=== PATIENT | female | born 1970 ===

== ENCOUNTER 2017-11-29 11:39 | Emergency (ER) | payer BC ==
[2017-11-29 11:53] VITALS: BMI 24.3
--- NOTE | 2017-11-29 11:53 | ED PDOC ---
Arrival/HPI - General Chief Complaint: Allergic Reaction Time Seen by Provider: 11/29/17 11:45 Historian: Patient, Family, EMS, Other (Dr. Seay) - History of Present Illness Narrative History of Present Illness (Text): 11/29/17 11:45 A 47 year old female brought into the emergency department by EMS complaining of a reaction s/p skin/allergic reaction testing done prior to arrival at Dr Jc's office. Patient was at Dr. Jc's (ENT specialist) office receiving testing and immediately felt itchiness. Dr. Jc provided patient with Benadryl 50 mg and steroids prior to emergency department arrival. On evaluation, patient is currently whispering but able to respond to questions by nodding head yes or no. Body tremors and eye twitching noted. NO SOB/drooling/ stridor is noted; Daughter denies any changes in mental status prior to appointment at approximately 09:00am with ENT specialist today. Patient denies any fever, chills, sweats, nausea, vomiting, abdominal pain, chest pain, shortness of breath or any other complaints. NO focal weakness no fall/trauma/sick contact, no travel noted pt is here for further eval. PCP: Dr Rodriguez Time/Duration: Prior to Arrival Symptom Onset: Sudden Symptom Course: Unchanged Severity Level: Severe Activities at Onset: Rest Context: Other (Dr. Seay's office) Past Medical History - Provider Review Nursing Documentation Reviewed: Yes - Travel History Have you recently traveled outside [place] w/in the past 3 mons?: No - Past History Past History: Non-Contributing - Infectious Disease Hx of Infectious Diseases: None - Reproductive Menopause: No Currently : Unknown Family/Social History - Physician Review Nursing Documentation Reviewed: Yes Family/Social History: No Known Family HX Smoking Status: Never Smoked Hx Alcohol Use: No Hx Substance Use: No Hx Substance Use Treatment: No Allergies/Home Meds Allergies/Adverse Reactions: Allergies rocephine Allergy (Uncoded 11/29/17 11:54) RASH Review of Systems - Physician Review All systems were reviewed & negative as marked: Yes - Review of Systems Constitutional: Other (Body tremors). absent: Fevers, Night Sweats Eyes: Other (Eye twitching noted) ENT: Normal Respiratory: absent: SOB Cardiovascular: absent: Chest Pain Gastrointestinal: absent: Abdominal Pain, Nausea, Vomiting Genitourinary Female: Normal Musculoskeletal: Normal Skin: Rash, Pruritis, Other (skin reaction, itchiness noted) Neurological: Normal Endocrine: Normal Hemo/Lymphatic: Normal Psychiatric: Normal Physical Exam - Physical Exam Narrative Physical Exam (Text): General: alert/awake, GCS = 15, oriented x 3, resting in bed, uncomfortable, cooperative, interactive; NAD Head: NC/AT EYE: PERRLA, EOMI, sclera anicteric, no nystagmus, no photophobia; visual field intact b/l Facial: WNL Oral: uvula/tongue are midline, no exudate/lesions, no drooling/stridor, no dysphonia; intact dentitions NECK: intact ROM, no midline tenderness, no nuchal rigidity, no meningeal signs ; no step off Chest: CTA b/l, no w/r/r; no tachypenia, no accessory muscle use noted Cardiac: +S1, +S2, no m/r/r, no tachycardia Abdominal: +BS, soft/nd/nt, well nourished patient; no masses/rebound/guarding/ rigidity; no grider's sign, no mcburney's point tenderness Extremities: intact ROM, strength 5/5 grossly intact in all limbs, neurovasc intact b/l; + ambulatory; reflex +2/2; no pitting edema/swelling b/l; no Preston' s sign b/l BACK: no step off, no midline tenderness, NO crepitus, no gross deformities noted; Intact ROM SKIN: cap refill < 1 sec, no ulcerations, no petechiae, noted b/l arm allergy test sites with noted skin urticarial changes more to right prox humerus, + puritic; no NIKOSKY's sign noted NEURO: CNII-XII WNL, no facial asymmetries, oriented x 3; pt is whispering but no slurring noted NIH stroke scale ~ 0 Psych: normal insight, normal affect; follows command with ease Vital Signs Reviewed: Yes Vital Signs Temp Pulse Resp BP Pulse Ox 11/29/17 15:39 98.0 F 76 18 99 11/29/17 13:58 98.5 F 66 18 101/66 100 11/29/17 12:09 67 17 100 11/29/17 12:05 98.5 F 74 17 144/77 98 Temperature: Afebrile Blood Pressure: Hypertensive (elevated BP) Pulse: Regular Respiratory Rate: Normal Appearance: Positive for: Well-Appearing, Non-Toxic, Uncomfortable. No: Comfortable, Ill-Appearing, Unkept Pain Distress: None Mental Status: Positive for: Alert and Oriented X 3 - Systems Exam Head: Present: Atraumatic, Normocephalic Medical Decision Making ED Course and Treatment: 11/29/17 11:45 Impression: A 47 year old female brought in for allergic reaction Plan: -- Chest xray -- EKG -- Lab -- Urinalysis -- IV fluids -- Reassess and disposition Progress Notes: 230pm On re-evaluation, patient is back to baseline. She is awake, alert and oriented x3. Patient shows no anaphylactic responses at this time. Will continue to monitor in the emergency room. 11/29/17 15:12 pt is doing well pt remained comfortable pt denied SOB pt tolerated po well vital signs stable pt is made aware of her medical results pt is encouraged fluids pt is encouraged ICE to rash/allergic site for comfort pt will follow up as directed pt will be discharged home Re-evaluation Time: 14:00 Reassessment Condition: Improved - Lab Interpretations Lab Results: 11/29/17 12:00 11/29/17 12:00 Lab Results 11/29/17 13:00: Urine Color Yellow, Urine Appearance Clear, Urine pH 6.0, Ur Specific [place] <= 1.005, Urine Protein Negative, Urine Glucose (UA) Negative, Urine Ketones Negative, Urine Blood Negative, Urine Nitrate Negative, Urine Bilirubin Negative, Urine Urobilinogen 0.2, Ur Leukocyte Esterase Negative 11/29/17 13:00: Urine Opiates Screen Negative, Urine Methadone Screen Negative, Ur Barbiturates Screen Negative, Ur Phencyclidine Scrn Negative, Ur Amphetamines Screen Negative, U Benzodiazepines Scrn Negative, U Oth Cocaine Metabols Negative, U Cannabinoids Screen Negative 11/29/17 12:00: Sodium 141, Potassium 4.0, Chloride 103, Carbon Dioxide 26, Anion Gap 16, BUN 11, Creatinine 0.7, Est GFR ( Amer) > 60, Est GFR (Non- Af Amer) > 60, Random Glucose 89, Calcium 9.6, Total Bilirubin 0.4, AST 26, ALT 40, Alkaline Phosphatase 90, Total Protein 8.0, Albumin 4.7, Globulin 3.3, Albumin/Globulin Ratio 1.4 11/29/17 12:00: WBC 6.6, RBC 5.08, Hgb 13.1, Hct 40.8, MCV 80.3, MCH 25.8, MCHC 32.1, RDW 18.5 H, Plt Count 271, MPV 10.0, Gran % 45.8 L, Lymph % (Auto) 39.5 H , [place] % (Auto) 9.7 H, Eos % (Auto) 4.7, Baso % (Auto) 0.3, Gran # 3.02, Lymph # (Auto) 2.6, [place] # (Auto) 0.6, Eos # (Auto) 0.3, Baso # (Auto) 0.02, ESR 50 H I have reviewed the lab results: Yes Interpretation: All labs normal - RAD Interpretation Narrative RAD Interpretations (Text): Report Date : 11/29/2017 14:04:54 Procedure: Chest xray Dictator : Jaya Dixon MD IMPRESSION: No active disease. Radiology Orders: 11/29/17 11:59 CHEST PORTABLE [RAD] Stat Senior Pl Sql Developer: Radiologist - EKG Interpretation EKG Interpretation (Text): 11/29/17 15:12 NSR at 70 bpm, LAD, no ectopy, inverted t in leads III, F, no st-t changes, BORDERLINE EKG; Interpreted by ED Physician: Yes Type: 12 lead EKG Comparison: Similar to previous EKG - Medication Orders Current Medication Orders: Discontinued Medications Diphenhydramine HCl (Benadryl) 25 mg IVP STAT STA Stop: 11/29/17 14:35 Last Admin: 11/29/17 14:47 Dose: 25 mg IVP Administration Document 11/29/17 14:47 [email or web address] (Rec: 11/29/17 14:47 [email or web address] [id number]) Charges for Administration # of IVP Administrations 1 Sodium Chloride (Sodium Chloride 0.9%) 1,000 mls @ 100 mls/hr IV .Q10H DEBO Last Admin: 11/29/17 12:20 Dose: 100 mls/hr eMAR Start Stop Document 11/29/17 12:20 [email or web address] (Rec: 11/29/17 13:59 [email or web address] [id number]) Intravenous Solution Start Date 11/29/17 Start Time 13:58 End Date 11/29/17 - Scribe Statement The provider has reviewed the documentation as recorded by the Jagdeep Pride Provider Kennedyibe Attestation: All medical record entries made by the Scribe were at my direction and personally dictated by me. I have reviewed the chart and agree that the record accurately reflects my personal performance of the history, physical exam, medical decision making, and the department course for this patient. I have also personally directed, reviewed, and agree with the discharge instructions and disposition. Disposition/Present on Arrival - Present on Arrival Any Indicators Present on Arrival: No History of DVT/PE: No History of Uncontrolled Diabetes: No Urinary Catheter: No History of Decub. Ulcer: No History Surgical Site Infection Following: None - Disposition Have Diagnosis and Disposition been Completed?: Yes Diagnosis: Allergic reaction Disposition: HOME/ ROUTINE Disposition Time: 15:15 Patient Plan: Discharge Patient Problems: Current Active Problems Problem Status Onset Allergic reaction Acute Condition: STABLE Discharge Instructions (ExitCare): Allergy Skin Testing, Drug Allergy Print Language: LITHUANIAN Additional Instructions: Make sure to see your doctor in 1-2 days DRINK PLENTY OF FLUIDS take your medications as prescribed ice your rash area for comfort 15min/hr over the next 1-2 days RETURN TO ED IF worse pain, cant breath, persistent vomiting, high fever >101- 102 for hours, altered behavior, slurr speech, facial changes, focal weakness ( arm/leg or both), unable to urinate, heavy/persistent bleeding, passing out, chest pain, or other medical emergencies Prescriptions: Epinephrine HCl [Epipen Auto-Injector] 0.3 mg MR ONCE PRN #1 unit PRN Reason: Anaphylaxis Prednisone 50 mg PO DAILY #4 tablet Referrals: [facility] [Outside] - Follow up with primary [facility] [Outside] - Follow up with primary [facility] [place] [place] [Outside] - Follow up with primary Dewayne Jc DO [Staff Provider] - Follow up with primary Forms: [employer] (Chinese)
[2017-11-29] MEDS ORDERED: Sodium Chloride 0.9% 1,000 ML IV SCH (12:15)
[2017-11-29 12:19] LABS: BASO # 0.02 K/mm3 (0.0-2.0); BASO % 0.3 % (0.0-3.0); EOS # 0.3 (0.0-0.7); EOS % 4.7 % (1.5-5.0); GRAN # 3.02 (1.4-6.5); GRAN % 45.8 % (50.0-68.0); HEMOGLOBIN 13.1 g/dL (12.0-16.0); LYMPH # 2.6 (1.2-3.4); LYMPH % 39.5 % (22.0-35.0); MEAN CELL VOLUME 80.3 fl (80.0-105.0); MEAN CORPUSCULAR HEMOGLOBIN 25.8 pg (25.0-35.0); MEAN CORPUSCULAR HGB CONC 32.1 g/dl (31.0-37.0); MONO # 0.6 (0.1-0.6); MONO % 9.7 % (1.0-6.0); RBC 5.08 10^6/uL (3.5-6.1); RED CELL DISTRIBUTION WIDTH 18.5 % (11.5-14.5); WHITE BLOOD COUNT 6.6 10^3/ul (4.5-11.0)
[2017-11-29 12:23] LABS: ALB/GLOB RATIO 1.4 (1.1-1.8); ALBUMIN 4.7 g/dL (3.0-4.8); ALT/SGPT 40 U/L (7-56); AST/SGOT 26 U/L (14-36); BLOOD UREA NITROGEN 11 mg/dL (7-21); CALCIUM 9.6 mg/dL (8.4-10.5); GFR AFRICAN-AMERICAN > 60; GFR NON-AFRICAN AMERICAN > 60
[2017-11-29 13:18] LABS: URINE APPEARANCE CLEAR (CLEAR); URINE BILIRUBIN NEGATIVE (NEGATIVE); URINE BLOOD NEGATIVE (NEGATIVE); URINE COLOR YELLOW (YELLOW); URINE GLUCOSE (UA) NEGATIVE (NEGATIVE); URINE LEUKOCYTE ESTERASE NEGATIVE Leu/uL (NEGATIVE); URINE PROTEIN NEGATIVE mg/dL (<30 mg/dL); URINE UROBILINOGEN 0.2 E.U./dL (<1 E.U./dL)
[2017-11-29 13:45] LABS: BARBITURATES, UR NEGATIVE (NEGATIVE); BENZODIAZEPINES, UR NEGATIVE (NEGATIVE); OPIATES, UR NEGATIVE (NEGATIVE); PHENCYCLIDINE, UR NEGATIVE (NEGATIVE)
[2017-11-29 13:58] VITALS: BP 101/66; RESP 18
--- NOTE | 2017-11-29 14:06 | RAD ---
HISTORY: AMS COMPARISON: No prior. FINDINGS: LUNGS: No active pulmonary disease. PLEURA: No significant pleural effusion identified, no pneumothorax apparent. CARDIOVASCULAR: Normal. OSSEOUS STRUCTURES: No significant abnormalities. VISUALIZED UPPER ABDOMEN: Normal. OTHER FINDINGS: None. IMPRESSION: No active disease.
[2017-11-29] MEDS ORDERED: DiphenhydrAMINE 50 mg/ml Inj IVP STA (14:34)
[2017-11-29 15:40] VITALS: PULSE 76; TEMP 98; O2SAT 99
--- NOTE | 2017-11-29 21:22 | CARD ---
APPROVED REPORT EKG Measurement Heart [id number] <Conclusion> Normal sinus rhythm Normal ECG
== END 2017-11-29 15:40 | disposition home or self-care (01) ==
LOC: ED 11:39
DX: T78.49XA Other allergy, initial encounter (principal); X58.XXXA Exposure to other specified factors, initial encounter
CPT/HCPCS: 71045; 80053; 81003; 85025; 85651; 93005; 96374; 99283; G0480; J1200; J7030

== ENCOUNTER 2017-12-16 11:01 | Day surgery (SDC) | payer BC ==
[2017-12-16 11:03] VITALS: BMI 23.0
[2017-12-16] MEDS ORDERED: Clindamycin 150 mg/mL Inj IM ONE (13:15)
--- NOTE | 2017-12-16 14:06 | CARD ---
APPROVED REPORT EKG Measurement Heart [id number] <Conclusion> Normal sinus rhythm PRWP NSSTW changes
[2017-12-16] MEDS ORDERED: Triamcinolone Acetonide 40 mg/mL Inj ONE (14:07)
[2017-12-16] MEDS ORDERED: HYDROmorphone 0.5 mg/0.5 ml ISec IVP PRN ×2 (14:31→14:38)
[2017-12-16] MEDS ORDERED: Oxycodone/Acetaminophen 5/325 mg Tab PO PRN (14:38)
[2017-12-16] MEDS ORDERED: Lactated Ringer's 1,000 ML IV SCH (14:45)
[2017-12-16] MEDS ORDERED: HYDROmorphone 0.5 mg/0.5 ml ISec ONE (14:55)
[2017-12-16 15:20] VITALS: O2SAT 98
[2017-12-16 18:40] VITALS: BP 122/77; PULSE 73; RESP 18; TEMP 98.2
--- NOTE | 2017-12-17 03:05 | OP ---
PROCEDURE DATE: 12/16/2017 PREOPERATIVE DIAGNOSES: Acute pelvic pain, left ovarian cyst measuring approximately 7 x 9 cm in size, right ovarian cyst measuring 2 x 3 cm in size. POSTOPERATIVE DIAGNOSES: Acute pelvic pain, left ovarian cyst measuring approximately 7 x 9 cm in size, right ovarian cyst measuring 2 x 3 cm in size. Left ovarian cyst extending to the peritoneal hogan of the bladder and extensive bowel adhesions. OPERATION PERFORMED: Operative laparoscopy with extensive lysis of adhesions as well as a left ovarian cystectomy and right ovarian cystectomy. SURGEON: Dr. Dez Miner. TYRE RETREADER SURGEON: . TYPE OF ANESTHESIA: General endotracheal. ESTIMATED BLOOD LOSS: Minimal. DESCRIPTION OF PROCEDURE: After informed consent was obtained and signed by the patient, the patient was brought into the operating room and general endotracheal anesthesia was induced. The patient was prepped and draped in usual sterile fashion. Examination under anesthesia revealed the patient was status post previous hysterectomy. Cervix was found to be normal and intact. Patient was noted to have a fluctuant left pelvic bladder mass measuring approximately 8 to 10 cm in size. Sponge stick was placed into the vagina and the patient was prepped and draped in usual sterile fashion. A subumbilical incision was made. It was brought down to the fascia, and the fascia was opened. Rectus muscle was split. Peritoneum was visualized, grasped with 2 hemostats, opened, and a blunt port trocar was inserted. Visualization of the pelvic cavity immediately revealed extensive omental to anterior abdominal wall adhesions with small bowel being looped to the anterior abdominal wall. Patient was also noted to have left sigmoidal adhesions. Right ovary was visualized. Found to have 2 x 3 cm ovarian cyst. The patient was noted to have large bulging cystic mass from the mid bladder to the left adnexal region. This mass itself was noted to be clear without any excrescences. An incision was made in the mass and approximately 150 mL of yellowish fluid was removed. The left sigmoidal area was then dissected free. Thus, having better visualization of the left ovary. A second cyst was found on the left ovary which was opened and drained. The remainder of the adhesions that were noted to be coming to the anterior abdominal wall from the mid pelvis were all systematically lysed freely. Hemostasis was excellent throughout this entire time. Next, the right ovarian cystectomy was performed in the standard fashion. The specimen sent to pathology for examination. Pelvis was irrigated, suctioned dry. Hemostasis was excellent. There were no bleeding points visualized. Uterus again was previously removed. Mid abdominal examination revealed the appendix, which was slightly retrocecal, but found to be normal. Upper abdominal examination revealed no other abnormalities. At this time frame, the procedure was terminated. The pneumoperitoneum was released. A 0 Vicryl was used to close the fascial incision. A 4-0 Monocryl was used to close the skin incisions. Specimens were sent to pathology for examination. The sponge in the vagina was removed. The patient was awakened and sent to the recovery room. Dez Miner MD
== END 2017-12-16 17:30 | disposition home or self-care (01) ==
LOC: SDS 11:01
PROVIDERS: ATTEND Obstetrics & Gynecology Gynecology
DX: N83.201 Unspecified ovarian cyst, right side (principal); N83.202 Unspecified ovarian cyst, left side; R10.2 Pelvic and perineal pain; K66.0 Peritoneal adhesions (postprocedural) (postinfection)
CPT/HCPCS: 58662; 84703; 88108; 88305; 93005; J0131; J0330; J1100; J1170; J1885; J2250; J2405; J2704; J2710; J2765; J3010; J3301; J7120 ×2

== ENCOUNTER 2018-09-08 06:19 | Outpatient (CLI) | payer BC | END 2018-09-08 06:20 | disposition home or self-care (01) | LOC: CARDIO 06:19 ==